=== PATIENT | male | born 1965 | race Caucasian/White ===

== ENCOUNTER 2024-07-07 06:05 | Day surgery (SDC) | payer MEDICARE ==
[~2024-07-07] VITALS: Ht 162.6 cm; Wt 74.0 kg
[~2024-07-07 06:05] MED LIST: ADVA45AE; ALBU8.5H; CARV3.12 PO; CITA20TA7 PO; ELIQ5TAB PO; FLUT1BLS5; FURO80TA2 PO; HYDR-643 PO; ISOS1TAB35 PO; JANU25TA PO; LORA-1041 PO; MIDO5TA PO; OXYC10TA3 PO; PANT40TA29 PO; PHENYLEPHRINE 10% OPHTH SOL 5ML OS PRN; POTA-298 PO; ROSU40TA81 PO; SPIR-10 PO; TRAZ-257 PO
[2024-07-07] MEDS ORDERED: MIDAZOLAM INJ 2MG/2ML VIAL As Ordered ONE (07:10)
[2024-07-07] MEDS: LIDOCAINE 3.5 % 1ML OPHTH TOPICAL GEL OU ONE (07:28)
[2024-07-07] MEDS: PHENYLEPHRINE 2.5% OPHTH SOL 2ML OS SCH (07:28)
[2024-07-07] MEDS: OFLOXACIN 0.3 % (OCUFLOX) OPTH SOL 5ML OS ONE (07:28)
[2024-07-07] MEDS: CYCLOPENTOLATE 1% OPHTH SOLN 2ML BTL OS SCH (07:28)
[2024-07-07] MEDS: TROPICAMIDE 1% OPHTH SOLN 15ML OS SCH (07:28)
[2024-07-07] MEDS ORDERED: fentaNYL 100 MCG/2 ML INJECTION As Ordered ONE (08:56)
[2024-07-07] MEDS: CEFUROXIME 1MG/0.1ML INTRACAMERAL INJ As Ordered ONE (09:16)
[2024-07-07] MEDS: LIDOCAINE 1% SDV 5ML VIAL As Ordered ONE (09:16)
[2024-07-07] MEDS: BSS IRRIG/VANCO(10MG)/TOBRA(5MG)/EPINEPH(1:1000-0.5CC)500ML BAG-ORONLY As Ordered ONE (09:17)
[2024-07-07 09:26] VITALS: BP 125/83; TEMP 97.1; O2SAT 96
== END 2024-07-07 10:05 | disposition home or self-care (01) ==
LOC: M SDC 06:05
PROVIDERS: ATTEND Ophthalmology
DX: H25.9 Unspecified age-related cataract (principal); I48.91 Unspecified atrial fibrillation; I25.2 Old myocardial infarction; Z95.5 Presence of coronary angioplasty implant and graft; E11.9 Type 2 diabetes mellitus without complications; Z86.73 Personal history of transient ischemic attack (TIA), and cerebral infarction without residual deficits; G47.30 Sleep apnea, unspecified; Z79.899 Other long term (current) drug therapy; Z87.891 Personal history of nicotine dependence
CPT/HCPCS: 36415; 66984; 84132; J0697; J2250; J3010; V2632

== ENCOUNTER 2024-07-14 06:23 | Day surgery (SDC) | payer MEDICARE ==
[~2024-07-14] VITALS: Ht 162.6 cm; Wt 76.7 kg
[~2024-07-14 06:23] MED LIST changes: +PHENYLEPHRINE 10% OPHTH SOL 5ML OD PRN; -PHENYLEPHRINE 10% OPHTH SOL 5ML OS PRN
[2024-07-14] MEDS: CYCLOPENTOLATE 1% OPHTH SOLN 2ML BTL OD SCH (07:08)
[2024-07-14] MEDS: PHENYLEPHRINE 2.5% OPHTH SOL 2ML OD SCH (07:08)
[2024-07-14] MEDS: TROPICAMIDE 1% OPHTH SOLN 15ML OD SCH (07:08)
[2024-07-14] MEDS: LIDOCAINE 3.5 % 1ML OPHTH TOPICAL GEL OU ONE (07:08)
[2024-07-14] MEDS: OFLOXACIN 0.3 % (OCUFLOX) OPTH SOL 5ML OD ONE (07:08)
[2024-07-14] MEDS ORDERED: fentaNYL 100 MCG/2 ML INJECTION As Ordered ONE (07:20)
[2024-07-14] MEDS ORDERED: MIDAZOLAM INJ 2MG/2ML VIAL As Ordered ONE (07:20)
[2024-07-14] MEDS: BSS IRRIG/VANCO(10MG)/TOBRA(5MG)/EPINEPH(1:1000-0.5CC)500ML BAG-ORONLY As Ordered ONE (08:35)
[2024-07-14] MEDS: LIDOCAINE 1% SDV 5ML VIAL As Ordered ONE (08:35)
[2024-07-14] MEDS: CEFUROXIME 1MG/0.1ML INTRACAMERAL INJ As Ordered ONE (08:42)
[2024-07-14 08:48] VITALS: BP 120/70; TEMP 97.2; O2SAT 96
== END 2024-07-14 09:05 | disposition home or self-care (01) ==
LOC: M SDC 06:23 → EDUNIT# 09:30
PROVIDERS: ATTEND Ophthalmology
DX: H25.9 Unspecified age-related cataract (principal); I48.91 Unspecified atrial fibrillation; I25.2 Old myocardial infarction; E11.9 Type 2 diabetes mellitus without complications; Z95.5 Presence of coronary angioplasty implant and graft; Z86.73 Personal history of transient ischemic attack (TIA), and cerebral infarction without residual deficits; G47.30 Sleep apnea, unspecified; Z79.899 Other long term (current) drug therapy; Z87.891 Personal history of nicotine dependence
CPT/HCPCS: 66984; J0697; J2250; J3010; V2632